=== PATIENT | male | born 1980 | race Caucasian/White ===

== ENCOUNTER 2018-07-26 19:47 | Emergency (ER) | payer SELFPAY ==
[2018-07-26 19:57] VITALS: BP 126/74; PULSE 99; TEMP 98; BMI 23.0
--- NOTE | 2018-07-26 23:26 | PDOC ---
History of Present Illness <Joselyn Woods - Last Filed: 07/27/18 00:15> - General History Source: Patient Exam Limitations: Intoxication - History of Present Illness Initial Comments: 07/26/18 23:25 The patient is a 37 year old male with past medical history of alcoholism who presents to the ED intoxication. Patient states he has had 10+ beers today which is typical of him. Denies any falls, head trauma, nausea, vomiting, diarrhea, cough, SOB, CP, headache, urinary complaints. History limited due to clinical intoxication from beer/ETOH. <Ree Werner - Last Filed: 07/27/18 01:44> - General Chief Complaint: Alcohol intoxication Stated Complaint: ALCOHOL INTOXICATED Time Seen by Provider: 07/26/18 20:48 Past History <Joselyn Woods - Last Filed: 07/27/18 00:15> - Past Medical History COPD: No - Suicide/Smoking/Psychosocial Hx Smoking History: Never smoked Hx Alcohol Use: Yes Substance Use Type: Alcohol <Ree Werner - Last Filed: 07/27/18 01:44> - Past Medical History Allergies/Adverse Reactions: Allergies Allergy/AdvReac Type Severity Reaction Status Date / Time No Known Allergies Allergy Verified 07/26/18 19:58 Home Medications: Ambulatory Orders NK [No Known Home Medication] 07/26/18 Review of Systems - Review of Systems Able to Perform ROS?: No (intoxicated) <Ree Werner - Last Filed: 07/27/18 01:44> *Physical Exam - Vital Signs Last Vital Signs Temp Pulse Resp BP Pulse Ox 98 F 99 H 18 126/74 100 07/26/18 19:49 07/26/18 19:49 07/26/18 19:49 07/26/18 19:49 07/26/18 19:49 <Joselyn Woods - Last Filed: 07/27/18 00:15> - Vital Signs Last Vital Signs Temp Pulse Resp BP Pulse Ox 98 F 99 H 18 126/74 100 07/26/18 19:49 07/26/18 19:49 07/26/18 19:49 07/26/18 19:49 07/26/18 19:49 - Physical Exam Comments: 07/26/18 23:26 General: mildly intoxicated, slurring speech, awake and alert. HEENT: NCAT, PERRL, EOMI, scleral injection, anicteric, moist mucus membranes, clear oropharynx, no oral lesions.. Neck: neck supple, FROM Resp: CTAB, normal and even respirations, no respiratory distress CVS: RRR, no murmurs, 2+ peripheral pulses throughout, no peripheral edema Abdomen: soft, NTND, no peritoneal signs. Back: nontender, normal inspection and ROM MSK: no edema, ROSE x4, ROM intact. No clubbing or cyanosis. normal bulk and tone. Extrem: no calf tenderness Neuro: alert, oriented appropriately; no focal neurologic deficits, gait stable , no ataxia. Skin: warm and well perfused, cap refill <2 sec, normal color 07/27/18 01:43 <Ree Werner - Last Filed: 07/27/18 01:44> Medical Decision Making - Medical Decision Making 07/26/18 23:28 37 YOM with ETOH intoxication. DDx. alcohol intoxication, alcohol withdrawal. drug intoxication pt monitored closely in the ED, sobriety hold. gait stable, no focal neuro deficits or findings of trauma. remained comfortable in chair, no acute events, VS remain stable. pt eloped on reassessment, unable to find in the department despite attempts to find. no IV in place. 07/27/18 01:44 <Ree Werner - Last Filed: 07/27/18 01:44> *DC/Admit/Observation/Transfer - Attestations Scribe Attestion: 07/27/18 00:15 Documentation prepared by Joselyn Woods, acting as emergency medical dispatcher for Ree Werner MD. <Joselyn Woods - Last Filed: 07/27/18 00:15> - Discharge Dispostion Decision to Admit order: No - Attestations Physician Attestion: 07/26/18 23:26 I, Ree Werner MD, attest that this document has been prepared under my direction and personally reviewed by me in its entirety. I further attest, that it accurately reflects all work, treatment, procedures and medical decision -making performed by me. <Ree Werner - Last Filed: 07/27/18 01:44> Diagnosis at time of Disposition: Alcohol intoxication - Discharge Dispostion Disposition: ELOPED - Patient Instructions Printed Discharge Instructions: DI for Alcohol Abuse
== END 2018-07-27 01:00 | disposition left against medical advice (07) ==
LOC: JER 19:47
DX: F10.120 Alcohol abuse with intoxication, uncomplicated (principal)
CPT/HCPCS: 99282-25